=== PATIENT | male | born 1985 | race African-American/Black ===

== ENCOUNTER 2016-09-29 18:17 | Emergency (ER) | payer SELFPAY ==
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
--- NOTE | ~2016-09-29 | CR58 ---
[facility] A Service of [facility] & [facility] RADIOLOGY TEXT RESULTS PATIENT: KYLAH NIEVES LOCATION: SED : [birth year] UNIT #: [id number] AGE: [address]: Kimberly Whitehead SEX: M ORDER DR: [id number] [address] [address] [id number] E MR#: [id number] Acc #: [id number] NAME: KYLAH NIEVES : 1985 SEX: M STUDY DATE/TIME: 09/29/2016 19:36 UNIT: SED ROOM: STUDY DESCRIPTION: CR Cervical Spine 2 or 3 Views Attending Physician: Kimberly Whitehead Pa-C Ordering Physician: Physician Non-Staff Primary Care Physician: Primary Care Physician No MEDICAL IMAGING REPORT This report is preliminary unless electronic signature is present. ADDENDUM Cervical spine 3 view study 09/29/2016 at 18:31 ADDENDUM Repeat odontoid view including the tip of the odontoid demonstrates no abnormality. Dictated by... Alonzo Hughes M.D. THIS IS AN ELECTRONICALLY VERIFIED REPORT Alonzo Hughes M.D. at 10/06/2016 2:01 PM DFL/rnr TD: 09/30/2016 00:35 JOB #: [id number] MEDICAL IMAGING REPORT Page 1 of 1
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
[~2016-09-29 18:17] MED LIST: NO MEDICATIONS
== END 2016-09-29 20:08 | disposition home or self-care (01) ==
LOC: SED 18:17
DX: S39.012A Strain of muscle, fascia and tendon of lower back, initial encounter (principal); S16.1XXA Strain of muscle, fascia and tendon at neck level, initial encounter; F17.210 Nicotine dependence, cigarettes, uncomplicated; V49.40XA Driver injured in collision with unspecified motor vehicles in traffic accident, initial encounter
CPT/HCPCS: 72040; 72100; 99284